=== PATIENT | female | born 1950 | race Caucasian/White ===

== ENCOUNTER 2016-12-11 17:25 | Emergency (ER) | payer MEDICARE, OTHER ==
[2016-12-11] MEDS ORDERED: Sodium Chloride 0.9% 10 ML Syringe FLUSH PRN (17:35)
[2016-12-11] MEDS ORDERED: Ondansetron 4 MG/2 ML SDV IVPUSH ONE (17:35)
[2016-12-11 18:03] VITALS: BP 152/85
--- NOTE | 2016-12-11 19:00 | EDM.PDOC ---
ED HPI NEURO - General Chief Complaint: Neurological Problem Stated Complaint: [facility] Time Seen by Provider: 12/11/16 17:30 Source of Information: Reports: Patient, EMS, Family History Limitations: Reports: No limitations - History of Present Illness INITIAL COMMENTS - FREE TEXT/NARRATIVE: The patient was out taking out some garbage and she leaned over and she developed severe vertigo and had nausea and vomiting. EMS was called and they started an IV and gave her some zofran. When she arrived here, her dizziness was better but not gone. She had no headache, fever, chills, chest pain, shortness of breath, or abdominal pain. She has no recent hearing loss but for a few years she had some tinnitus. Timing/Duration: Reports: Minutes: Location (Neuro Complaint): Reports: other (Dizziness) Quality (Neuro Complaint): Reports: other (Dizziness, nausea, and vomiting) Severity: severe Improves with: Reports: None Worsens with: Reports: Movement Context, General: Reports: Activity (taking out the garbage) Associated Symptoms: Reports: nausea/vomiting. Denies: headaches, seizure, cough, fever/chills, loss of appetite - Related Data Allergies/ADRs: Allergies Allergy/AdvReac Type Severity Reaction Status Date / Time No Known Allergies Allergy Verified 12/11/16 17:32 Home Meds: Home Meds Meclizine [Antivert] 25 mg PO Q6H PRN #30 tablet 12/11/16 [Rx] Past Medical History HEENT History: Reports: Hard of hearing Other HEENT History: ringing in ears Gastrointestinal History: Reports: Chronic constipation, Hemorrhoids Genitourinary History: Reports: UTI, recurrent - Past Surgical History GI Surgical History: Reports: Cholecystectomy, Colonoscopy Female Surgical History: Reports: Hysterectomy Social & Family History - Tobacco Use Smoking Status *Q: Never Smoker - Caffeine Use Caffeine Use: Reports: Coffee - Recreational Drug Use Recreational Drug Use: No ED ROS GENERAL - Review of Systems Review Of Systems: See Below Constitutional: Reports: no symptoms HEENT: Reports: No symptoms Respiratory: Reports: No Symptoms Cardiovascular: Reports: No symptoms Endocrine: Reports: no symptoms GI/Abdominal: Reports: Nausea, Vomiting. Denies: Abdominal pain : Reports: no symptoms Musculoskeletal: Reports: no symptoms Skin: Reports: no symptoms Neurological: Reports: Dizziness. Denies: Headache ED EXAM, NEURO - Physical Exam Exam: See Below Exam Limited By: No limitations General Appearance: alert, no apparent distress Eye Exam: right eye: nystagmus, bilateral eye: EOMI Ears: normal external exam, normal canal, normal TMs Nose: normal inspection Head Exam: atraumatic, normocephalic Neck: normal inspection Respiratory/Chest: no respiratory distress, lungs clear, normal breath sounds Cardiovascular: regular rate, rhythm, no edema, no murmur GI/Abdominal: soft, non tender, no organomegaly, no mass Neurological: alert, no motor/sensory deficits, oriented x 3 EKG INTERPRETATION EKG Date: 12/11/16 Time: 17:43 Rhythm: NSR Rate (beats/min): 69 [place]: normal P-wave: present QRS: normal ST-T: normal QT: normal Course - Vital Signs Last Recorded V/S: Last Vital Signs Temp 96.9 F 12/11/16 17:28 Pulse 68 12/11/16 18:02 Resp 17 12/11/16 18:02 BP 152/85 H 12/11/16 18:02 Pulse Ox 100 12/11/16 18:02 - Orders/Labs/Meds Orders: Active Orders 24 hr Category Date Time Status Cardiac Monitoring [RC] . DIRECTED Care 12/11/16 17:35 Active EKG Documentation Completion [RC] STAT Care 12/11/16 17:35 Active Peripheral IV Care [RC] . DIRECTED Care 12/11/16 17:35 Active Head wo Cont [CT] Stat Exams 12/11/16 17:36 Taken Sodium Chloride 0.9% [Saline Flush] Med 12/11/16 17:35 Active 10 ml FLUSH ASDIRECTED PRN ED Antiemetic Medication Reflex [OM.PC] Stat Oth 12/11/16 17:35 Ordered Peripheral IV Insertion Adult [OM.PC] Stat Oth 12/11/16 17:35 Ordered Medication Orders Sodium Chloride (Saline Flush) 10 ml FLUSH ASDIRECTED PRN PRN Reason: Keep Vein Open Last Admin: 12/11/16 17:47 Dose: 10 ml Labs: Laboratory Tests 12/11/16 12/11/16 Range/Units 17:25 17:25 WBC 12.79 H (3.98-10.04) K/mm3 RBC 4.81 (3.98-5.22) M/mm3 Hgb 14.3 (11.2-15.7) gm/L Hct 42.9 (34.1-44.9) % MCV 89.2 (79.4-94.8) fl MCH 29.7 (25.6-32.2) pg MCHC 33.3 (32.2-35.5) g/dl RDW Std Deviation 44.6 (36.4-46.3) fL Plt Count 238 (182-369) K/mm3 MPV 12.0 (9.4-12.3) fl Neut % (Auto) 76.9 H (34.0-71.1) % Lymph % (Auto) 14.5 L (19.3-51.7) % [place] % (Auto) 6.5 (4.7-12.5) % Eos % (Auto) 1.4 (0.7-5.8) Baso % (Auto) 0.4 (0.1-1.2) % Neut # (Auto) 9.84 H (1.56-6.13) K/mm3 Lymph # (Auto) 1.85 (1.18-3.74) K/mm3 [place] # (Auto) 0.83 H (0.24-0.36) K/mm3 Eos # (Auto) 0.18 (0.04-0.36) K/mm3 Baso # (Auto) 0.05 (0.01-0.08) K/mm3 Sodium 139 (136-145) mEq/L Potassium 3.8 (3.5-5.1) mEq/L Chloride 103 (98-107) mEq/L Carbon Dioxide 22 (21-32) mEq/L Anion Gap 17.8 H (5-15) BUN 22 H (7-18) mg/dL Creatinine 1.0 (0.55-1.02) mg/dL Est Cr Clr Drug Dosing 45.78 mL/min Estimated GFR (MDRD) 55 (>60) mL/min BUN/Creatinine Ratio 22.0 H (14-18) Glucose 159 H (80-115) mg/dL Calcium 9.1 (8.5-10.1) mg/dL Total Bilirubin 0.2 (0.2-1.0) mg/dL AST 20 (15-37) U/L ALT 35 (14-59) U/L Alkaline Phosphatase 89 (46-116) U/L Troponin I < 0.017 (0.00-0.056) ng/mL Total Protein 7.7 (6.4-8.2) g/dl Albumin 3.9 (3.4-5.0) g/dl Globulin 3.8 gm/dL Albumin/Globulin Ratio 1.0 (1-2) Meds: Medications Generic Name Dose Route Start Last Admin Trade Name Freq PRN Reason Stop Dose Admin Sodium Chloride 10 ml 12/11/16 17:35 12/11/16 17:47 Saline Flush FLUSH 10 ml ASDIRECTED PRN Administration Keep Vein Open Discontinued Medications Generic Name Dose Route Start Last Admin Trade Name Freq PRN Reason Stop Dose Admin Diazepam 5 mg 12/11/16 17:37 12/11/16 17:50 Valium IVPUSH 12/11/16 17:38 5 mg ONETIME ONE Administration Meclizine HCl 25 mg 12/11/16 17:36 12/11/16 17:48 Antivert PO 12/11/16 17:37 25 mg ONETIME ONE Administration Ondansetron HCl 4 mg 12/11/16 17:35 12/11/16 17:47 Zofran IVPUSH 12/11/16 17:36 4 mg ONETIME ONE Administration - Re-Assessments/Exams Free Text/Narrative Re-Assessment/Exam: 12/11/16 18:56 I ordered an IV NS 500ml bolus, zofran 4mg IV, antivert 25mg, and valium 5mg IV. Her EKG shows a NSR with no acute chanages. Her CT shows nothing acute. Her WBC was elevated at 12.79. Her anion gap was elevated at 17.8. Her BUN was elevated at 22. Her glucose was slightly elevated at 159. Her troponin was negative. She feels much better. Her family is here now and they recall she had an episode like this about 10 years ago. I will get her on antivert and have her follow up with Dr Bowen or PT. Departure - Departure Time of Disposition: 19:00 Disposition: Home, Self-Care 01 Condition: good Clinical Impression: Vertigo Prescriptions: Meclizine [Antivert] 25 mg PO Q6H PRN #30 tablet PRN Reason: Dizziness Referrals: Tabby Lockwood MD [Primary Care Provider] - Forms: ED Department Discharge Additional Instructions: Take the antivert every 6 hours as needed for dizziness. Drink plenty of water. Follow up with Dr Bowen or our physical therapy department. You can schedule the appointment by calling [phone]. Please return if you are worse. - My Orders Last 24 Hours: My Active Orders 12/11/16 17:35 Cardiac Monitoring [RC] . DIRECTED EKG Documentation Completion [RC] STAT Peripheral IV Care [RC] . DIRECTED Sodium Chloride 0.9% [Saline Flush] 10 ml FLUSH ASDIRECTED PRN ED Antiemetic Medication Reflex [OM.PC] Stat Peripheral IV Insertion Adult [OM.PC] Stat 12/11/16 17:36 Head wo Cont [CT] Stat - Assessment/Plan Last 24 Hours: My Active Orders 12/11/16 17:35 Cardiac Monitoring [RC] . DIRECTED EKG Documentation Completion [RC] STAT Peripheral IV Care [RC] . DIRECTED Sodium Chloride 0.9% [Saline Flush] 10 ml FLUSH ASDIRECTED PRN ED Antiemetic Medication Reflex [OM.PC] Stat Peripheral IV Insertion Adult [OM.PC] Stat 12/11/16 17:36 Head wo Cont [CT] Stat
--- NOTE | 2016-12-13 16:19 | CT ---
Head CT Technique: Multiple axial sections through the brain were obtained. Intravenous contrast was not utilized. Comparison: No previous intracranial imaging is available. Findings: Ventricles along the basal cisterns and sulci over the convexities are mildly prominent. Minimal diminished density noted within the periventricular white matter compatible with small vessel ischemic demyelination change. No other abnormal parenchymal densities are seen. No evidence of intracranial hemorrhage. No midline shift or mass effect is seen. Bone window settings were reviewed which show no discrete calvarial abnormality. Visualized sinuses are clear. Impression: 1. Minimal senescent change. 2. No acute intracranial abnormality is identified on noncontrast head CT study. Diagnostic code #2 Agree with preliminary report issued by [email or web address] (preliminary [facility] report dictated on 12/11/16, 7:05 PM Central Time)
== END 2016-12-11 19:48 | disposition home or self-care (01) ==
LOC: SUPCPDRO 17:25 → JD.ED 17:25
DX: R11.2 Nausea with vomiting, unspecified (principal); R42 Dizziness and giddiness; Z87.440 Personal history of urinary (tract) infections; Z90.89 Acquired absence of other organs; Z90.710 Acquired absence of both cervix and uterus
CPT/HCPCS: 36415; 70450; 80053; 84484; 85025; 93005; 96374; 96375; 99285; A9270; J2405; J3360; J7050; 99284

== ENCOUNTER 2019-12-05 12:12 | Emergency (ER) | payer MEDICARE, OTHER ==
--- NOTE | 2019-12-05 13:13 | EDM.PDOC ---
ED HPI GENERAL MEDICAL PROBLEM - General Chief Complaint: Neuro Symptoms/Deficits Stated Complaint: NEUROLOGICAL SYMPTOMS Time Seen by Provider: 12/05/19 12:41 Source of Information: Reports: Patient, Family () History Limitations: Reports: No Limitations - History of Present Illness INITIAL COMMENTS - FREE TEXT/NARRATIVE: Mrs. Blake is a very pleasant 69-year-old woman with no significant medical problems, who is now brought to the ED by her after she appeared to be confused. He states that she forgot that he had gone into town today, and forgot that she had been talking to their son on the telephone earlier today. At no time did she slurred her words, and at no time did she experience any weakness. No prior similar symptoms. Her blood pressure was checked at home, and found to be high, therefore the patient's brought her to the ED. The patient denies recent fever, chills, cough, dyspnea, chest pain, palpitations, nausea, vomiting, constipation, diarrhea, abdominal pain, urinary symptoms, recent weight gain or weight loss, recent bloody bowel movements or black bowel movements, recent joint aches, headaches, or rashes. Here in the ED, the patient's initial BP was found to be elevated at 201/80, but without treatment, it decreased to 156/78. She is otherwise hemodynamically stable, afebrile, saturating 97% on room air. She appears to be in no distress whatsoever, and does not appear to be confused. The patient's PCP is Dr. Tabby Ma. The patient did not receive an influenza vaccine this season, but declined an offer to receive one here today. - Related Data Allergies Allergy/AdvReac Type Severity Reaction Status Date / Time No Known Allergies Allergy Verified 12/05/19 12:23 Home Meds: Home Meds Ascorbic Acid/Vitamin E/Biotin [Hair Skin Nails-Biotin Gummies] 1 tab PO DAILY 12/05/19 [History] Garlic [Garlique] 5,000 mcg PO DAILY 12/05/19 [History] Glucosamine/D3/Boswellia Carito [Osteo Bi-Flex Caplet] 1 tab PO DAILY 12/05/19 [ History] Inulin/Chromium Picolinate [Fiber Gummies] 1 tab PO DAILY 12/05/19 [History] Multivitamin [Daily Ana] 1 tab PO DAILY 12/05/19 [History] Past Medical History HEENT History: Reports: Hard of Hearing, Other (See Below) (Tinnitus) Gastrointestinal History: Reports: Hemorrhoids Musculoskeletal History: Reports: Osteoarthritis (knees) - Infectious Disease History Infectious Disease History: Reports: Chicken Pox, Measles, Mumps - Past Surgical History HEENT Surgical History: Reports: Oral Surgery (wisdom teeth extraction) GI Surgical History: Reports: Cholecystectomy (around 1999), Colonoscopy (x 1) Female Surgical History: Reports: Hysterectomy (complete) Social & Family History - Family History Family Medical History: Noncontributory - Tobacco Use Smoking Status *Q: Never Smoker Second Hand Smoke Exposure: Yes Source of Second Hand Smoke Exposure: - Caffeine Use Caffeine Use: Reports: Coffee - Alcohol Use Alcohol Use History: Yes Alcohol Use Frequency: Rarely - Recreational Drug Use Recreational Drug Use: No - Living Situation & Occupation Living situation: Reports: , with Spouse Occupation: Retired ED ROS GENERAL - Review of Systems Review Of Systems: Comprehensive ROS is negative, except as noted in HPI. GI/Abdominal: Reports: Constipation (chronic) ED EXAM, GENERAL - Physical Exam Exam: See Below Exam Limited By: No Limitations General Appearance: Alert, WD/WN, No Apparent Distress Eye Exam: Bilateral Eye: EOMI, Normal Inspection, PERRL Ears: Normal External Exam, Normal Canal, Hearing Grossly Normal, Normal TMs Nose: Normal Inspection, Normal Mucosa, No Blood Throat/Mouth: Normal Inspection, Normal Lips, Normal Teeth, Normal Gums, Normal Oropharynx, Normal Voice, No Airway Compromise Head: Atraumatic, Normocephalic Neck: Normal Inspection, Supple, Non-Tender, Full Range of Motion. No: Lymphadenopathy (L), Lymphadenopathy (R) Respiratory/Chest: No Respiratory Distress, Lungs Clear, Normal Breath Sounds, No Accessory Muscle Use Cardiovascular: Normal Peripheral Pulses, Regular Rate, Rhythm, No Edema, No Gallop, No JVD, No Murmur, No Rub Peripheral Pulses: 4+: Radial (L), Radial (R) GI/Abdominal: Normal Bowel Sounds, Soft, Non-Tender, No Organomegaly, No Distention, No Abnormal Bruit, No Mass (Female) Exam: Deferred Rectal (Female) Exam: Deferred Back Exam: Normal Inspection, Full Range of Motion, NT Extremities: Normal Inspection, Normal Range of Motion, No Pedal Edema, Normal Capillary Refill Neurological: Alert, Oriented, CN II-XII Intact, Normal Cognition, No Motor/ Sensory Deficits Psychiatric: Normal Affect Skin Exam: Warm, Dry, Intact, Normal Color, No Rash EKG INTERPRETATION EKG Date: 12/05/19 Time: 13:42 Rhythm: Other (Sinus bradycardia) Rate (Beats/Min): 59 [place]: Normal P-Wave: Present QRS: Other (Early transition) ST-T: Normal QT: Normal Comparison: No Change (12/11/2016) Course - Vital Signs Last Recorded V/S: Last Vital Signs Temp 37.2 C 12/05/19 16:24 Pulse 62 12/05/19 16:24 Resp 16 12/05/19 16:24 BP 148/81 H 12/05/19 16:24 Pulse Ox 98 12/05/19 16:24 Orthostatic Blood Pressure [ 155/89 Standing] Orthostatic Blood Pressure [ 151/63 Supine] - Orders/Labs/Meds Labs: Laboratory Tests 12/05/19 12/05/19 12/05/19 Range/Units 13:18 13:18 13:18 WBC 6.93 (3.98-10.04) K/mm3 RBC 4.60 (3.98-5.22) M/mm3 Hgb 13.8 (11.2-15.7) gm/dl Hct 42.4 (34.1-44.9) % MCV 92.2 D (79.4-94.8) fl MCH 30.0 (25.6-32.2) pg MCHC 32.5 (32.2-35.5) g/dl RDW Std Deviation 45.3 (36.4-46.3) fL Plt Count 295 (182-369) K/mm3 MPV 12.2 (9.4-12.3) fl Neutrophils % (Manual) 71 H (40-60) % Band Neutrophils % 0 (0-10) % Lymphocytes % (Manual) 21 (20-40) % Atypical Lymphs % 0 % Monocytes % (Manual) 7 (2-10) % Eosinophils % (Manual) 1 (0.7-5.8) % Basophils % (Manual) 0 L (0.1-1.2) Platelet Estimate Adequate RBC Morph Comment Normal D-Dimer, Quantitative 0.42 (0.19-0.50) mg/L Sodium 142 (136-145) mEq/L Potassium 4.1 (3.5-5.1) mEq/L Chloride 106 (98-107) mEq/L Carbon Dioxide 25 (21-32) mEq/L Anion Gap 15.1 H (5-15) BUN 23 H (7-18) mg/dL Creatinine 0.7 (0.55-1.02) mg/dL Est Cr Clr Drug Dosing 65.50 mL/min Estimated GFR (MDRD) > 60 (>60) mL/min BUN/Creatinine Ratio 32.9 H (14-18) Glucose 118 H (80-115) mg/dL Calcium 9.7 (8.5-10.1) mg/dL Magnesium 2.3 (1.8-2.4) mg/dl Total Bilirubin 0.2 (0.2-1.0) mg/dL AST 18 (15-37) U/L ALT 28 (14-59) U/L Alkaline Phosphatase 76 (46-116) U/L Troponin I < 0.017 (0.00-0.056) ng/mL Total Protein 8.3 H (6.4-8.2) g/dl Albumin 4.2 (3.4-5.0) g/dl Globulin 4.1 gm/dL Albumin/Globulin Ratio 1.0 (1-2) TSH 3rd Generation 1.704 (0.358-3.74) uIU/mL Urine Color (Yellow) Urine Appearance (Clear) Urine pH (5.0-8.0) Ur Specific Daisy (1.005-1.030) Urine Protein (Negative) Urine Glucose (UA) (Negative) Urine Ketones (Negative) Urine Occult Blood (Negative) Urine Nitrite (Negative) Urine Bilirubin (Negative) Urine Urobilinogen (0.2-1.0) Ur Leukocyte Esterase (Negative) Urine RBC (0-5) /hpf Urine WBC (0-5) /hpf Ur Squamous Epith Cells (0-5) /hpf Urine Bacteria (FEW) /hpf Urine Mucus (FEW) /hpf 12/05/19 Range/Units 14:40 WBC (3.98-10.04) K/mm3 RBC (3.98-5.22) M/mm3 Hgb (11.2-15.7) gm/dl Hct (34.1-44.9) % MCV (79.4-94.8) fl MCH (25.6-32.2) pg MCHC (32.2-35.5) g/dl RDW Std Deviation (36.4-46.3) fL Plt Count (182-369) K/mm3 MPV (9.4-12.3) fl Neutrophils % (Manual) (40-60) % Band Neutrophils % (0-10) % Lymphocytes % (Manual) (20-40) % Atypical Lymphs % % Monocytes % (Manual) (2-10) % Eosinophils % (Manual) (0.7-5.8) % Basophils % (Manual) (0.1-1.2) Platelet Estimate RBC Morph Comment D-Dimer, Quantitative (0.19-0.50) mg/L Sodium (136-145) mEq/L Potassium (3.5-5.1) mEq/L Chloride (98-107) mEq/L Carbon Dioxide (21-32) mEq/L Anion Gap (5-15) BUN (7-18) mg/dL Creatinine (0.55-1.02) mg/dL Est Cr Clr Drug Dosing mL/min Estimated GFR (MDRD) (>60) mL/min BUN/Creatinine Ratio (14-18) Glucose (80-115) mg/dL Calcium (8.5-10.1) mg/dL Magnesium (1.8-2.4) mg/dl Total Bilirubin (0.2-1.0) mg/dL AST (15-37) U/L ALT (14-59) U/L Alkaline Phosphatase (46-116) U/L Troponin I (0.00-0.056) ng/mL Total Protein (6.4-8.2) g/dl Albumin (3.4-5.0) g/dl Globulin gm/dL Albumin/Globulin Ratio (1-2) TSH 3rd Generation (0.358-3.74) uIU/mL Urine Color Yellow (Yellow) Urine Appearance Clear (Clear) Urine pH 7.0 (5.0-8.0) Ur Specific Daisy 1.025 (1.005-1.030) Urine Protein Negative (Negative) Urine Glucose (UA) Negative (Negative) Urine Ketones 1+ H (Negative) Urine Occult Blood Negative (Negative) Urine Nitrite Negative (Negative) Urine Bilirubin Negative (Negative) Urine Urobilinogen 0.2 (0.2-1.0) Ur Leukocyte Esterase Negative (Negative) Urine RBC Not seen (0-5) /hpf Urine WBC Not seen (0-5) /hpf Ur Squamous Epith Cells 0-5 (0-5) /hpf Urine Bacteria Not seen (FEW) /hpf Urine Mucus Not seen (FEW) /hpf Meds: Medications Discontinued Medications Generic Name Dose Route Start Last Admin Trade Name Freq PRN Reason Stop Dose Admin Influenza Virus Vaccine 180 mcg 12/05/19 13:15 12/05/19 13:38 Fluzone High-Dose Syringe IM 12/05/19 13:16 180 mcg .ONCE ONE Administration - Re-Assessments/Exams Free Text/Narrative Re-Assessment/Exam: 12/05/19 13:09 As above, the patient appears to have been somewhat forgetful earlier today, and was found to be hypertensive here in the ED, although her BP has improved considerably without any treatment since arrival. She denies any recent illness and her physical exam is completely benign. I have ordered a work-up that includes some blood work, a urinalysis, orthostatics, and an ECG, just make sure that we do not miss anything. 12/05/19 14:00 The patient is not orthostatic. 12/05/19 14:30 The patient's CBC is unremarkable. Her CMP is remarkable for an anion gap slightly elevated at 15.1, but with a bicarbonate normal at 25. Her BUN is slightly elevated 23, but her Cr is normal at 0.7. Her blood glucose is slightly elevated at 118, with the remainder of her CMP being unremarkable. Her magnesium level is within normal limits at 2.3. Her troponin is undetectably low. Her TSH is within normal limits at 1.704. Her D-dimer is within normal limits at 0.42. The patient has not yet provided a urine sample. 12/05/19 16:11 The patient's urinalysis is unremarkable. Test results discussed with the patient and her son (her is not currently present). As above, today's work-up is completely unremarkable and does not explain the cause of her symptoms. The patient states that she has been thinking about it and believes that she may have suffered a panic attack related to finding out that her restarted smoking. After the patient's had an appendectomy but while still hospitalized, he stopped breathing at one point, likely due to excess opioids, however, the patient was under the impression that it was due to his bad lungs due to smoking, and she does not want to see that happen again. I explained to the patient that it is very possible that she suffered a panic attack, but I reassured her that while we too would like to see him stop smoking, her 's earlier episode of stopping breathing was not related to his smoking. I will discharge the patient home. Departure - Departure Time of Disposition: 16:13 Disposition: Home, Self-Care 01 Condition: Good Clinical Impression: Confusion - Discharge Information *PRESCRIPTION DRUG MONITORING PROGRAM REVIEWED*: Not Applicable *COPY OF PRESCRIPTION DRUG MONITORING REPORT IN PATIENT KELSEY: Not Applicable Instructions: Confusion Referrals: Tabby Lockwood MD [Primary Care Provider] - Forms: ED Department Discharge Additional Instructions: You were seen in the emergency room after developing some confusion and feeling "weird". Work-up in the ER included blood work, positional blood pressure checks, a urinalysis, and an ECG. Your entire work-up was unremarkable and does not explain the cause of your symptoms. You are not anemic. No infection was found. No electrolyte abnormalities were found. You have not suffered a heart attack. You do not have a blood clot in your lungs. You are not hypothyroid. You are not dehydrated. You do not have a urinary tract infection. It is very possible that your symptoms were due to a panic attack, however, since you are not experiencing the symptoms when seen in the ER, we cannot be certain. Follow-up with your PCP, Dr. Tabby Ma, as needed. If any other problems, please do not hesitate to return to the ER. Sepsis Event Note - Evaluation Sepsis Screening Result: No Definite Risk - Focused Exam Date Exam was Performed: 12/06/19 Time Exam was Performed: 20:13
[2019-12-05 16:24] VITALS: BP 148/81; PULSE 62
== END 2019-12-05 16:27 | disposition home or self-care (01) ==
LOC: JD.ED 12:12
DX: R41.0 Disorientation, unspecified (principal); M19.90 Unspecified osteoarthritis, unspecified site; R00.1 Bradycardia, unspecified; Z77.22 Contact with and (suspected) exposure to environmental tobacco smoke (acute) (chronic); Z79.899 Other long term (current) drug therapy
CPT/HCPCS: 36415; 80053; 81001; 83735; 84443; 84484; 85007; 85027; 85379; 90662; 93005; 99285; G0008; 99283

== ENCOUNTER 2022-12-13 11:40 | Emergency (ER) | payer MEDICARE, OTHER ==
[2022-12-13 16:56] VITALS: BP 152/84; PULSE 62
== END 2022-12-13 14:09 | disposition home or self-care (01) ==
LOC: JD.ED 11:40
DX: S01.111A Laceration without foreign body of right eyelid and periocular area, initial encounter (principal); M25.511 Pain in right shoulder; W19.XXXA Unspecified fall, initial encounter; W22.8XXA Striking against or struck by other objects, initial encounter; Y92.000 Kitchen of unspecified non-institutional (private) residence as the place of occurrence of the external cause
CPT/HCPCS: 12011; 70450; 70450-26; 73030-26-RT; 73030-RT; 99283; 99284

== ENCOUNTER 2024-09-25 16:55 | Emergency (ER) | payer MEDICARE, OTHER ==
[2024-09-25 17:44] VITALS: BP 146/58; PULSE 73
[2024-09-25 18:21] LABS: BASOPHILS PERCENT AUTO 0.2 % (0.0-1.0); EOSINOPHILS PERCENT AUTO 0.1 % (0.0-6.0); HEMATOCRIT 40.7 % (37.0-47.0); HEMOGLOBIN 13.5 gm/dl (12.0-16.0); IMMATURE GRAN ABSOLUTE AUTO 0.02 K/mm3 (0.00-0.05); IMMATURE GRAN PERCENT AUTO 0.2 % (0.0-0.4); LYMPHOCYTES ABSOLUTE AUTO 0.8 K/mm3 (1.0-4.8); LYMPHOCYTES PERCENT AUTO 8.8 % (24.0-44.0); MEAN CORPUSCULAR HEMOGLOBIN 30.6 pg (28.0-32.0); MEAN CORPUSCULAR HGB CONC 33.2 g/dl (32.0-36.0); MEAN CORPUSCULAR VOLUME 92.3 fl (83.0-99.0); MEAN PLATELET VOLUME 12.1 fl (9.4-12.3); MONOCYTES ABSOLUTE AUTO 0.7 K/mm3 (0.0-0.8); MONOCYTES PERCENT AUTO 7.6 % (0.0-8.0); NEUTROPHILS ABSOLUTE AUTO 7.3 K/mm3 (1.8-7.7); NEUTROPHILS PERCENT AUTO 83.1 % (41.0-71.0); PLATELET COUNT,PLT 187 K/mm3 (150-400); RED BLOOD CELL COUNT 4.41 M/mm3 (4.10-5.30); WHITE BLOOD CELL COUNT,WBC 8.77 K/mm3 (3.9-11.3)
[2024-09-25 18:49] LABS: ANION GAP 13.9 (5-15); BUN/CREATININE RATIO 23.8 (14-18); CREATININE 0.8 mg/dL (0.55-1.02); EST CRCL DRUG DOSING (CG) 48.8 mL/min; POTASSIUM,K 3.9 mEq/L (3.5-5.1)
[2024-09-25 18:50] LABS: ALBUMIN 3.6 g/dl (3.4-5.0); BILIRUBIN TOTAL 0.5 mg/dL (0.2-1.0); CALCIUM 8.9 mg/dL (8.5-10.1); PROTEIN TOTAL,TP 7.1 g/dl (6.4-8.2)
[2024-09-25] MEDS: Iopamidol 612 MG/ML 100 ML Bottle IVPUSH ONE (19:43)
[2024-09-25] MEDS: Sodium Chloride 0.9% 10 ML Syringe FLUSH ONE (19:45)
[2024-09-25] MEDS: Sodium Chloride 0.9% 500 ML IV ONE (20:07)
[2024-09-25 21:06] LABS: APPEARANCE,URINE CLEAR (Clear); BILIRUBIN,URINE NEGATIVE (Negative); COLOR,URINE YELLOW (Yellow); GLUCOSE,URINE NEGATIVE (Negative); KETONES,URINE 1+ (Negative); LEUKOCYTE ESTERASE,URINE NEGATIVE (Negative); NITRITE,URINE NEGATIVE (Negative); OCCULT BLOOD,URINE NEGATIVE (Negative); PROTEIN,URINE TRACE (Negative); UROBILINOGEN,URINE 0.2 (0.2-1.0)
[2024-09-25 21:23] LABS: BACTERIA,URINE FEW /hpf (FEW); MUCUS,URINE FEW /hpf (FEW); RBC,URINE 0-5 /hpf (0-5); SQUAMOUS EPITHELIAL CELLS,UR 0-5 /hpf (0-5); WBC,URINE 0-5 /hpf (0-5)
== END 2024-09-25 21:40 | disposition home or self-care (01) ==
LOC: JD.ED 16:55
DX: R10.32 Left lower quadrant pain (principal); Z79.899 Other long term (current) drug therapy; Z90.49 Acquired absence of other specified parts of digestive tract; Z90.710 Acquired absence of both cervix and uterus
CPT/HCPCS: 36415; 74177; 80053; 81001; 83690; 83735; 84484; 85025; 93005; 96360; 99284; J7030; Q9967; 93010; 99283

== ENCOUNTER 2025-01-06 22:49 | Emergency (ER) | payer MEDICARE, OTHER ==
[2025-01-06] MEDS ORDERED: Sodium Chloride 0.9% 10 ML Syringe FLUSH PRN (23:20)
[2025-01-06 23:40] LABS: BASOPHILS ABSOLUTE AUTO 0.1 K/mm3 (0.0-0.2); BASOPHILS PERCENT AUTO 0.6 % (0.0-1.0); EOSINOPHILS ABSOLUTE AUTO 0.2 K/mm3 (0.0-0.4); EOSINOPHILS PERCENT AUTO 3.1 % (0.0-6.0); HEMATOCRIT 41.6 % (37.0-47.0); HEMOGLOBIN 13.9 gm/dl (12.0-16.0); IMMATURE GRAN ABSOLUTE AUTO 0.01 K/mm3 (0.00-0.05); IMMATURE GRAN PERCENT AUTO 0.1 % (0.0-0.4); LYMPHOCYTES ABSOLUTE AUTO 2.3 K/mm3 (1.0-4.8); LYMPHOCYTES PERCENT AUTO 29.3 % (24.0-44.0); MEAN CORPUSCULAR HEMOGLOBIN 30.7 pg (28.0-32.0); MEAN CORPUSCULAR HGB CONC 33.4 g/dl (32.0-36.0); MEAN CORPUSCULAR VOLUME 91.8 fl (83.0-99.0); MEAN PLATELET VOLUME 12.2 fl (9.4-12.3); MONOCYTES ABSOLUTE AUTO 0.7 K/mm3 (0.0-0.8); MONOCYTES PERCENT AUTO 9.5 % (0.0-8.0); NEUTROPHILS ABSOLUTE AUTO 4.4 K/mm3 (1.8-7.7); NEUTROPHILS PERCENT AUTO 57.4 % (41.0-71.0); PLATELET COUNT,PLT 234 K/mm3 (150-400); RED BLOOD CELL COUNT 4.53 M/mm3 (4.10-5.30); WHITE BLOOD CELL COUNT,WBC 7.75 K/mm3 (3.9-11.3)
[2025-01-07 00:13] LABS: A/G RATIO 1.1 (1-2); ALBUMIN 3.9 g/dl (3.4-5.0); ANION GAP 15.7 (5-15); BILIRUBIN TOTAL 0.2 mg/dL (0.2-1.0); BUN/CREATININE RATIO 29.1 (14-18); CALCIUM 9.1 mg/dL (8.5-10.1); CREATININE 1.1 mg/dL (0.55-1.02); EST CRCL DRUG DOSING (CG) 37.12 mL/min; MAGNESIUM 2.3 mg/dL (1.8-2.4); POTASSIUM,K 3.7 mEq/L (3.5-5.1); PROTEIN TOTAL,TP 7.5 g/dl (6.4-8.2)
[2025-01-07] MEDS: Sodium Chloride 0.9% 1,000 ML IV ONE (00:14)
[2025-01-07] MEDS: Diltiazem 25 MG/5 ML SDV IVPUSH ONE (00:14)
[2025-01-07] MEDS ORDERED: Diltiazem 125 MG in Sodium Chloride 0.9% 100 ML IV SCH (00:45)
[2025-01-07] MEDS: Diltiazem 120 MG Cap.CD PO ONE (01:09)
[2025-01-07 01:10] VITALS: BP 131/80; PULSE 71
== END 2025-01-07 01:20 | disposition home or self-care (01) ==
LOC: JD.ED 22:49
DX: I48.91 Unspecified atrial fibrillation (principal); E78.00 Pure hypercholesterolemia, unspecified; Z79.4 Long term (current) use of insulin; Z79.01 Long term (current) use of anticoagulants; Z79.899 Other long term (current) drug therapy; Z90.49 Acquired absence of other specified parts of digestive tract
CPT/HCPCS: 36415; 71045; 80053; 83735; 84484; 85025; 93005; 96374; 99285; A9270; J3490; J7030; 93010; 99284